=== PATIENT | male | born 1955 | race Caucasian/White ===

== ENCOUNTER 2016-06-20 08:45 | Outpatient (CLI) | payer BC ==
--- NOTE | 2016-06-23 10:17 | OP Clinic Progress Note ---
REFERRING PHYSICIAN: Dr. Audrey Chen Dear Dr. Chen: REASON FOR VISIT: I had the pleasure of seeing our mutual patient, Juwan Soler, for follow up of his rheumatoid arthritis, seropositive, of multiple joints. He has done well in the past 6 months except for 4 to 5 weeks when his insurance company would not fill his Enbrel. He developed painful swelling of the hands and wrists with loss of use. Otherwise, he is presently doing well with no significant joint swelling, warmth , tenderness, morning stiffness, or pain. REVIEW OF SYSTEMS: On review of systems, he remains in his wheelchair. He needs surgery to his buttocks but his workmen's compensation insurance is giving him some difficulty with coverage. Otherwise, no fevers, chills, sweat, chest pain, shortness of breath, cough, wheezing, nausea, vomiting, or diarrhea. PAST MEDICAL HISTORY: 1. Hypertension. 2. Seropositive rheumatoid arthritis. Patient remains on Enbrel 50 mg subcutaneous weekly. PHYSICAL EXAMINATION: General: On exam, he otherwise looks well. Vital Signs: T: 97.1, R: 12, heart rate: 65, BP: 130/80. HEENT: Sclerae are anicteric. Conjunctivae are pink. No stomatitis or glossitis. LUNGS: Clear bilaterally. HEART: Regular rhythm. ABDOMEN: Soft. VASCULAR: No edema or cyanosis. PERIPHERAL JOINTS: No synovitis or deformities at the DIPs, PIPs, MCPs, wrists , elbows, shoulders, hips, knees, ankles, and feet. IMPRESSION: 1. Rheumatoid arthritis, seropositive, of multiple joints, active and stable. 2. High risk drug. No evidence of drug toxicity. PLAN: I will see him back in 6 months. Thank you very much. Best regards, cc: Dr. Audrey DANIEL
== END 2016-06-20 08:46 ==
LOC: RHEU 08:45
PROVIDERS: ATTEND Internal Medicine
DX: M17.9 Osteoarthritis of knee, unspecified (principal); Z79.899 Other long term (current) drug therapy
CPT/HCPCS: 99214

== ENCOUNTER 2016-12-19 09:38 | Outpatient (CLI) | payer BC ==
--- NOTE | 2016-12-19 13:26 | OP Clinic Progress Note ---
REASON FOR VISIT: Juwan Soler returns for follow up on his rheumatoid arthritis. He has had a good 6 months, just a little achier this summer but no swelling or joint deformities. He has been dropping things on occasion but he attributes that to a little hand weakness and the partial amputation of the left thumb. PAST MEDICAL HISTORY: 1. Seropositive rheumatoid arthritis. 2. Hypertension. 3. Paralysis. PRESENT MEDICATIONS: 1. Metoprolol. 2. Enbrel. 3. Advil. REVIEW OF SYSTEMS: Otherwise, no fevers, chills, sweats, chest pain, shortness of breath, cough, or wheezing. No sores. No decubitus ulcers. PHYSICAL EXAMINATION: GENERAL: On exam, he is in a wheelchair. VITAL SIGNS: BP: 116/80, heart rate of 68, R: 18, T: 96.8. HEENT: Sclerae are anicteric. Conjunctivae are pink. No stomatitis or glossitis. Neck: No cervical nodes. LUNGS: Clear bilaterally with no crackles or wheezing. HEART: Regular rhythm. ABDOMEN: Soft and nontender. VASCULAR: Show no edema or cyanosis. PERIPHERAL JOINTS: The DIPs, PIPs, MCPs, wrists, elbows, shoulders, hips, knees , ankles, and feet show no synovitis. No rheumatoid deformities. Suede Brusher strength is slightly decreased but adequate. IMPRESSION: Seropositive rheumatoid arthritis, doing well on his present regimen of Enbrel. PLAN: Continue present medications. I have asked him to potentially inject the posterior aspect of his arms instead of his thighs because he has very little muscle mass. Thank you very much. cc: Dr. Audrey DANIEL
== END 2016-12-19 09:40 ==
LOC: RHEU 09:38
PROVIDERS: ATTEND Internal Medicine
DX: M05.9 Rheumatoid arthritis with rheumatoid factor, unspecified (principal)
CPT/HCPCS: 99213

== ENCOUNTER 2017-06-19 09:47 | Outpatient (CLI) | payer BC ==
--- NOTE | 2017-06-24 10:49 | OP Clinic Progress Note ---
REASON FOR VISIT: Juwan Soler returns for follow up on his rheumatoid arthritis, seropositive, of multiple sites. I last saw him 6 months ago. He has had a rough winter. He has had some pain in his shoulders, as well as his wrists. They feel kind of tight and morning stiffness is about 30 minutes. Otherwise, no overt swelling. No new deformities. He has had no overt associated symptoms. PAST MEDICAL HISTORY: 1. Seropositive rheumatoid arthritis. 2. Hypertension. 3. Paralysis. PRESENT MEDICATIONS: 1. Metoprolol. 2. Enbrel. 3. Advil. REVIEW OF SYSTEMS: No fevers, chills, sweats, chest pain, shortness of breath, cough, or wheezing. He has no skin breakdown. PHYSICAL EXAMINATION: VITAL SIGNS: Height: 6 feet 3 inches. T: 96.9, R: 20, heart rate 67, BP: 130/92. HEENT: Sclerae are anicteric. Conjunctivae are pink. No stomatitis or glossitis. LUNGS: Clear. HEART: Regular rhythm. ABDOMEN: Soft. VASCULAR: No edema or cyanosis. PERIPHERAL JOINTS: He has ulnar deviation in the left hand at the MCPs, but otherwise no synovitis and no volar subluxation. The right wrist is slightly swollen and tender, but otherwise, cafeteria or lunchroom checker is intact. Elbows, shoulders, hips, knees, ankles, and feet are unremarkable. IMPRESSION: Seropositive rheumatoid arthritis, active. PLAN: 1. Continue Enbrel. 2. I am giving him prednisone 5 mg tablets to take 1 a day for 7 days and then stop. He will report on how he feels. 3. Otherwise, I will see him in 6 months. He is to return if his symptoms worsen. 4. I have asked him to contact his primary doctor, Dr. Audrey Chen, to update his general health care. If not recently done, he needs fasting lipids, review of his vaccinations, etc. At that time, I would like a CBC, CMP, sedimentation rate, and CRP. Thank you very much. cc: Dr. Audrey DANIEL
== END 2017-06-19 13:20 ==
LOC: RHEU 09:47
PROVIDERS: ATTEND Internal Medicine
DX: M06.9 Rheumatoid arthritis, unspecified (principal)
CPT/HCPCS: 99213

== ENCOUNTER 2017-12-25 09:42 | Outpatient (CLI) | payer BC ==
--- NOTE | 2017-12-25 12:32 | OP Clinic Progress Note ---
REASON FOR VISIT: Mr. Soler returns for follow up of seropositive rheumatoid arthritis of multiple sites. This morning he has had some neck pain and it started last night. He does have some stiffness in his wrists but nothing is overtly swollen. Morning stiffness is about 30 minutes. No new deformities. He has had no fevers, chills, sweats, chest pain, shortness of breath, cough, wheezing, nausea, vomiting or diarrhea and no skin breakdown. PAST MEDICAL HISTORY: 1. Seropositive rheumatoid arthritis. 2. Hypertension. 3. Lower extremity paralysis. PRESENT MEDICATIONS: 1. Metoprolol. 2. Enbrel. 3. Advil. PHYSICAL EXAMINATION: VITAL SIGNS: T: 97, R: 20, heart rate 62, BP: 130/80. HEENT: Sclerae are anicteric. Conjunctivae are pink. No stomatitis or glossitis. LUNGS: Clear bilaterally with no crackles or wheezing. HEART: Regular rate and rhythm. ABDOMEN: Soft and nontender. VASCULAR: No edema or cyanosis. PERIPHERAL JOINTS: Tenderness and synovitis at MCPs #2 and #3 bilaterally, as well as the wrists. Elbows and shoulders are unremarkable. He has difficulty with lateral rotation, flexion and extension of the neck. Extremities: Lower extremities show no synovitis. IMPRESSION: Seropositive rheumatoid arthritis. PLAN: 1. Continue Enbrel. 2. I am going to give him prednisone 5 mg daily. 3. No need for labs today. 4. I will see him in 6 months. 5. I have counseled him on taking calcium and vitamin D supplements. Thank you very much. cc: Dr. Audrey DANIEL
== END 2017-12-25 09:43 ==
LOC: RHEU 09:42
PROVIDERS: ATTEND Internal Medicine
DX: M05.9 Rheumatoid arthritis with rheumatoid factor, unspecified (principal)
CPT/HCPCS: 99213; 99214